=== PATIENT | female | born 1970 | race Caucasian/White ===

== ENCOUNTER 2019-07-13 09:41 | Emergency (ER) | payer OTHER, SELFPAY ==
[2019-07-13] VITALS (16 sets, daily range): BP systolic 119–154; BP diastolic 59–81; PULSE 73–86; RESP 11–28; TEMP 36.1; O2SAT 92–100
[2019-07-13 09:54] LABS: Glucose Point of Care 397 (65-105)
--- NOTE | 2019-07-13 09:56 | ED.RECABL ---
HPI - Recheck/Abnormal Lab/Rx General Chief Complaint: Recheck/Abnormal Lab/Rx Stated Complaint: high blood sugar Time Seen by Provider: 07/13/19 09:48 History of Present Illness HPI narrative: Patient is a 49-year-old female who presents the ER with elevated blood sugars. Patient reports her blood sugars been running high since March. She uses sliding scale short acting insulin and then is on Basaglar are 50 units subcu twice daily. Typically her blood sugars run in the 300s and occasionally into the 500s. She has 1 reported blood sugar in the last 4 months at 178. She reports that she has had some neck swelling near what she thinks is her thyroid intermittently with the last episode being a month ago where her neck was swollen and red. She currently has none of these symptoms and has no difficulty breathing or swallowing. Reports compliance with her medications. Reports her manager home healthcare sent her here for further testing. Patient's hemoglobin A1c typically runs between 9 and 15. Related Data Home Medications Medication Instructions Recorded Confirmed famotidine 07/13/19 insulin glargine [Basaglar KwikPen 50 unit SUBCUT BID 07/13/19 07/13/19 U-100 Insulin] insulin lispro [Admelog SoloStar 10 unit SUBCUT ACINSULIN 07/13/19 07/13/19 U-100 Insulin] lisinopril 07/13/19 metoprolol tartrate 07/13/19 topiramate 07/13/19 Allergies Allergy/AdvReac Type Severity Reaction Status Date / Time codeine Allergy Mild Rash Unverified 07/13/19 09:59 nitrofurantoin Allergy Mild Rash Unverified 07/13/19 09:59 Penicillins Allergy Mild Rash Unverified 07/13/19 09:59 propoxyphene Allergy Mild LIGHT Unverified 07/13/19 09:59 HEADEDNESS tetanus toxoid, adsorbed Allergy Mild Swelling Verified 07/13/19 09:59 NITRATE Allergy Mild Rash Uncoded 07/13/19 09:59 Review of Systems Review of Systems: All systems reviewed & are unremarkable except as noted in HPI and below Constitutional: Constitutional: Denies chills, Denies fever(s) and Denies weakness ENT: Denies nasal congestion and Denies sore throat Cardiovascular: Cardiovascular: Denies chest pain and Denies radiating jaw, neck or arm pain Respiratory: Respiratory: Denies cough, Denies dyspnea and Denies wheezing Gastrointestinal: Gastrointestinal: Denies abdominal pain, Denies constipation, Denies nausea and Denies vomiting PMF Past Medical History Medical History (Updated 07/13/19 @ 13:38 by Kash Healy MD) Diabetes type I GERD (gastroesophageal reflux disease) Hypertension Surgical History Surgical History (Updated 07/13/19 @ 12:46 by Kash Healy MD) H/O tubal ligation History of cholecystectomy Social History Social History (Updated 07/13/19 @ 12:46 by Kash Healy MD) Smoking status: Current every day smoker Gender identity (if verbalized by the patient): Female Exam Narrative: Exam Narrative: GENERAL: Well-appearing, well-nourished, and in no acute distress. HEAD: Normocephalic, atraumatic. ENT: Mucous membranes moist. NECK: Supple, no thyromegaly. CHEST: Clear to auscultation. No respiratory distress. HEART: Regular rate and rhythm. Normal peripheral pulses. ABDOMEN: Soft, nontender, nondistended. EXTREMITIES: Normal range of motion. No edema. SKIN: Warm, dry, no rash. NEURO: Alert and oriented x3. Course Reevaluation(s) Reevaluation #1: Spoke with Dr. Khan. Patient has history of noncompliance and is homeless with poor eating habits. She does not check her blood sugar every day. Dr. Khan's plan was to admit the patient for 2 days with supervised management of hyperglycemia to prove to patient that the medications are in fact working and if they are not make the adjustments as needed. Will discuss with hospitalist to see if amenable to caring for the patient. Date: 07/13/19 Time: 12:51 Reevaluation #2: Discussed with hospitalist. Patient is otherwise stable with chronically elevated blood sugars. [facility]
[2019-07-13 10:47] LABS: Basophils Percent Auto 0.5 % (0.2-1.2); Eosinophils Absolute Auto 0.1 K/mm3 (0-0.3); Eosinophils Percent Auto 1.5 % (0-4.4); Immature Granulocyte Absolute 0.01 K/mm3 (0.00-0.031); Immature Granulocyte Percent A 0.3 % (0-0.5); Lymphocytes Absolute Auto 1.17 K/mm3 (0.9-3.2); Lymphocytes Percent Auto 30.2 % (18.3-44.2); Mean Corpuscular HGB Conc 33.3 g/dl (32-36); Mean Corpuscular Hemoglobin 30.5 pg (26-34); Mean Corpuscular Volume 91.6 fl (80-100); Mean Platelet Volume 9.7 fl (7.4-10.4); Monocytes Absolute Auto 0.2 K/mm3 (0.1-0.6); Monocytes Percent Auto 6.2 % (2.6-8.5); Neutrophils Absolute Auto 2.4 K/mm3 (1.3-6.7); Neutrophils Percent Auto 61.3 % (45.5-73.1); Platelet Count Result 221 k/mm3 (150-375); Red Blood Count 3.93 M/mm3 (4.2-5.4); Red Cell Distribution Width 12.2 % (11.5-14.5); White Blood Count 3.9 K/mm3 (4.5-10.0)
[2019-07-13 10:51] LABS: Add Urine Microscopic? YES; Appearance Urine Clear (Clear); Bacteria Urine Trace /hpf; Bilirubin Urine Negative (Negative); Blood Urine Negative (Negative); Color Urine Straw (Yellow); Glucose Urine UA 3+ mg/dL (Negative); Ketones Urine Negative (Negative); Leukocyte Esterase Ur Trace LEU/UL (Negative); Nitrate Urine Positive (Negative); Protein Urine Negative (Negative); RBC Urine 0-2 /hpf (0-2); Specific Grav Ur 1.027 (1.001-1.035); Squamous Epithelial Cell Urine Many /hpf (Few); Urobilinogen Urine Negative mg/dL (<2.0); WBC Urine 21-30 /hpf
[2019-07-13 10:59] LABS: Alanine Aminotransferase 13 U/L (4-35); Albumin Level 3.7 g/dL (3.5-5.1); Alkaline Phosphatase 81 U/L (38-126); Aspartate Amino Transferase 13 U/L (14-36); Bilirubin,Total 0.4 mg/dL (0.2-1.3); Blood Urea Nitrogen 12 mg/dL (7-17); Calcium 8.9 mg/dL (8.4-10.2); Carbon Dioxide 28 mmol/L (22-30); Chloride 99 mmol/L (98-107); Estimated CRCL calculation 97 ml/min; Estimated Glomerular Filt Rate > 60; Glucose 399 mg/dL (65-105); Magnesium 1.6 mg/dL (1.6-2.3); Phosphorus 4.7 mg/dL (2.5-4.5); Potassium 4.2 mmol/L (3.4-5.0); Sodium 134 mmol/L (137-145)
--- NOTE | 2019-07-13 12:17 | PC.NURSE ---
Awaiting TSH level. Per main lab states it will be approx 7-10 min. Pt updated.
[2019-07-13 12:26] LABS: Thyroid Stimulating Hormone Reflex 0.818 uIU/mL (0.465-4.68)
--- NOTE | 2019-07-13 12:41 | PC.NURSE ---
Preparing to contact pmd. Pt sleeping soundly on stretcher, awakens easily.
== END 2019-07-13 13:50 | disposition home or self-care (01) ==
PROVIDERS: Emergency Provider Emergency Medicine; PCP Nurse Practitioner Family
DX: E10.65 Type 1 diabetes mellitus with hyperglycemia (principal); K21.9 Gastro-esophageal reflux disease without esophagitis; I10 Essential (primary) hypertension; Z79.4 Long term (current) use of insulin
CPT/HCPCS: 36415; 80053; 81001; 81025; 82948; 83735; 84100; 84443; 85025; 87077; 87086; 87088; 87186; 99283